=== PATIENT | male | born 1980 | race Caucasian/White ===

== ENCOUNTER 2022-01-11 09:27 | Emergency (ER) | payer SELFPAY ==
[~2022-01-11] VITALS: Ht 177.8 cm; Wt 85.0 kg
[2022-01-11] MEDS ORDERED: TETANUS, DIPHTHERIA, PERTUSSIS VAC/PF 0.5ML (>10YR OLD) IM ONE (09:45)
[2022-01-11] MEDS ORDERED: CLIN-194 MT (11:06)
[2022-01-11] MEDS ORDERED: CLINDAMYCIN HCL 150MG CAPSULE PO SCH (11:15)
[2022-01-11 11:52] VITALS: BP 137/87
== END 2022-01-11 12:01 | disposition home or self-care (01) ==
LOC: ER 09:27
DX: S61.214A Laceration without foreign body of right ring finger without damage to nail, initial encounter (principal); S62.634A Displaced fracture of distal phalanx of right ring finger, initial encounter for closed fracture; W27.0XXA Contact with workbench tool, initial encounter; Y93.89 Activity, other specified; Y92.9 Unspecified place or not applicable
CPT/HCPCS: 12001; 73140; 90471; 90715; 99283